=== PATIENT | female | born 1940 | race Caucasian/White ===

== ENCOUNTER 2016-10-17 19:54 | Emergency (ER) | payer MEDICAID ==
[~2016-10-17] VITALS: Ht 157.5 cm; Wt 76.0 kg
[2016-10-17] MEDS: VANCOMYCIN 1 G PREMIX 200 ML IV SCH (01:05)
[2016-10-17] MEDS ORDERED: LEVOFLOXACIN 250MG PREMIX 50 ML IV ONE (23:45)
[2016-10-18 00:03] LABS: BASOPHILS % 0.5 % (0.0-2.0); HEMATOCRIT. 32.5 % (36.0-48.0); LYMPHOCYTES % 43.8 % (20.0-50.0); MEAN CORPUSCULAR HEMOGLOBIN 26.1 pg (28.0-32.0); MEAN CORPUSCULAR HGB CONC 30.7 g/dL (31.0-37.0); MEAN CORPUSCULAR VOLUME 84.8 fL (81.0-99.0); MEAN PLATELET VOLUME 8.8 fl (7.4-10.4); MONOCYTES % 8.2 % (2.0-8.0); NEUTROPHILS % 41.5 % (40.0-76.0); PLATELET 266 x1000/uL (130-400); RED BLOOD CELL COUNT 3.84 mill/uL (4.2-5.4); RED CELL DISTRIBUTION WIDTH 16.3 % (11.6-14.6); WHITE BLOOD COUNT 5.2 x1000/uL (4.5-11.0)
[2016-10-18 00:13] LABS: CALCIUM 8.2 mg/dL (8.5-10.1)
[2016-10-18] MEDS: VANCOMYCIN 1 G PREMIX 200 ML IV SCH (01:05)
[2016-10-18 02:20] VITALS: BP 156/68
== END 2016-10-18 03:56 | disposition home or self-care (01) ==
LOC: ER 19:55
DX: S90.32XA Contusion of left foot, initial encounter (principal); E86.0 Dehydration; L03.116 Cellulitis of left lower limb; E11.9 Type 2 diabetes mellitus without complications; I10 Essential (primary) hypertension; X58.XXXA Exposure to other specified factors, initial encounter; Y93.89 Activity, other specified; Y99.8 Other external cause status; Y92.89 Other specified places as the place of occurrence of the external cause
CPT/HCPCS: 36415; 73610; 73630; 80048; 85025; 87070; 87205; 96365; 96366; 96367; 99285; J1956; J3370; Z7610